=== PATIENT | male | born 1990 | race Hispanic/Latino ===

== ENCOUNTER 2017-09-30 13:21 | Emergency (ER) | payer SELFPAY | END 2017-09-30 13:50 | disposition home or self-care (01) | LOC: EDH 13:21 | DX: B34.9 Viral infection, unspecified (principal) | CPT/HCPCS: 99281 ==

== ENCOUNTER 2019-02-17 21:07 | Emergency (ER) | payer OTHER | END 2019-02-17 22:12 | LOC: EDH 21:07 | DX: F41.9 Anxiety disorder, unspecified (principal) ==

== ENCOUNTER 2023-07-06 10:28 | Emergency (ER) | payer OTHER ==
[~2023-07-06] VITALS: Ht 162.6 cm; Wt 63.5 kg
[2023-07-06] MEDS ORDERED: DIPH25CA53 PO (11:02)
[2023-07-06] MEDS ORDERED: TERB30CR8 TP (11:02)
[2023-07-06 11:38] VITALS: BP 126/74; PULSE 92; RESP 17; O2SAT 99
== END 2023-07-06 11:53 | disposition home or self-care (01) ==
LOC: EDH 10:28
DX: B35.4 Tinea corporis (principal)